=== PATIENT | male | born 1965 | race Caucasian/White ===

== ENCOUNTER 2023-09-15 09:43 | Emergency (ER) | payer MEDICAID ==
[~2023-09-15] VITALS: Ht 157.5 cm; Wt 70.0 kg
[2023-09-15 09:57] VITALS: O2SAT 97
[2023-09-15] MEDS ORDERED: CEPH500C2 MT (12:00)
[2023-09-15] MEDS: HYDROCODONE/ACETAMINOPHEN 5/325MG TABLET PO ONE (12:08)
[2023-09-15 12:10] VITALS: BP 144/87; PULSE 80; RESP 16; TEMP 98.3
== END 2023-09-15 12:11 | disposition home or self-care (01) ==
LOC: ER 09:43
DX: S61.412A Laceration without foreign body of left hand, initial encounter (principal); I10 Essential (primary) hypertension; E11.9 Type 2 diabetes mellitus without complications; Z98.890 Other specified postprocedural states; W45.8XXA Other foreign body or object entering through skin, initial encounter; Y93.89 Activity, other specified; Y92.89 Other specified places as the place of occurrence of the external cause; Y99.8 Other external cause status
CPT/HCPCS: 99283; Z7610